=== PATIENT | female | born 2000 | race Caucasian/White ===

== ENCOUNTER 2025-02-08 17:19 | Inpatient (IN) | payer SELFPAY ==
[2025-02-08] VITALS (11 sets, daily range): BP systolic 93–147; BP diastolic 53–121; PULSE 112–142; RESP 17–25; TEMP 36.5–36.5292; O2SAT 99–100
[~2025-02-08] VITALS: Ht 162.6 cm; Wt 79.8 kg
[2025-02-08] MEDS: CEFTRIAXONE 2GM/50ML 50 ML IV ONE (18:00)
[2025-02-08] MEDS: SODIUM CHLORIDE 0.9% (SEPSIS BOLUS) IV ONE (18:53)
[2025-02-08] MEDS: KETOROLAC 15MG/ML VIAL IV ONE (18:53)
[2025-02-08 19:23] LABS: BASOPHILS % 0.2 % (0.0-2.0); EOSINOPHILS % 0.1 % (0.0-5.0); HEMATOCRIT. 44.6 % (36.0-48.0); HEMOGLOBIN. 13.0 g/dL (12.0-16.0); LYMPHOCYTES % 8.7 % (20.0-50.0); MEAN PLATELET VOLUME 10.7 fl (7.4-10.4); MONOCYTES % 4.8 % (2.0-8.0); NEUTROPHILS % 86.2 % (40.0-76.0); PLATELET 359 x1000/uL (130-400); RED BLOOD CELL COUNT 4.51 mill/uL (4.2-5.4); RED CELL DISTRIBUTION WIDTH 14.8 % (11.6-14.6)
[2025-02-08 19:37] LABS: INR 1.0
[2025-02-08 19:38] LABS: CREATININE 1.5 mg/dL (0.6-1.0); UREA NITROGEN BLOOD 17 mg/dL (9-23)
[2025-02-08 19:39] LABS: PROTEIN TOTAL 7.3 g/dL (6.0-8.3)
[2025-02-08 19:40] LABS: ASPARTATE AMINOTRANSFERASE 12 IU/L (<34); BILIRUBIN DIRECT < 0.1 mg/dL (<=3.0); BILIRUBIN TOTAL 0.3 mg/dL (0.1-1.0)
[2025-02-08] MEDS ORDERED: SODIUM PHOSPHATE 15 MMOL in SODIUM CHLORIDE 0.9% 245 ML IV PRN (20:15)
[2025-02-08] MEDS ORDERED: POTASSIUM CHLORIDE 40 MEQ in SODIUM CHLORIDE 0.9% 230 ML IV PRN (20:15)
[2025-02-08] MEDS ORDERED: DEXT 5%/0.9% NACL 1,000 ML IV SCH (20:15)
[2025-02-08] MEDS ORDERED: DEXTROSE 50% WATER 50ML SYRINGE IV PRN ×2 (20:15→21:00)
[2025-02-08] MEDS ORDERED: BLOOD SUGAR DIAGNOSTIC STRIP TEST SCH (20:15)
[2025-02-08] MEDS ORDERED: MAGNESIUM 2 G PREMIX 50 ML IV PRN ×2 (20:15→21:00)
[2025-02-08] MEDS ORDERED: KCL 20MEQ/100ML PREMIX 100 ML IV PRN (20:15)
[2025-02-08] MEDS ORDERED: SODIUM CHLORIDE 0.9% 1,000 ML IV SCH (20:15)
[2025-02-08] MEDS ORDERED: BLOOD SUGAR DIAGNOSTIC STRIP TEST PRN ×2 (20:15→21:00)
[2025-02-08] MEDS ORDERED: SODIUM BICARBONATE 8.4% 50MEQ/50ML VIAL IV ONE (20:15)
[2025-02-08] MEDS: INSULIN REGULAR (HUMULIN R) 1000UNITS/10ML VIAL IV ONE (20:58)
[2025-02-08] MEDS: ALBUTEROL (0.083%) 2.5MG/3ML NEB HHN ONE (20:58)
[2025-02-08] MEDS ORDERED: CLONIDINE 0.1MG TABLET PO PRN (21:00)
[2025-02-08] MEDS ORDERED: GUAIFENESIN 200MG/10ML SUGAR FREE UDC PO PRN (21:00)
[2025-02-08] MEDS ORDERED: DOCUSATE SODIUM 100MG CAPSULE PO PRN (21:00)
[2025-02-08] MEDS ORDERED: LACTATED RINGERS 1,000 ML IV SCH (21:00)
[2025-02-08] MEDS ORDERED: DEXT 5%/LACTATED RINGERS 1,000 ML IV SCH (21:00)
[2025-02-08] MEDS ORDERED: MAGNESIUM/ALUMINUM HYDROXIDE/SIMETHICONE 30ML UDC PO PRN (21:00)
[2025-02-08] MEDS ORDERED: INSULIN REGULAR (DRIP) 100 UNITS in SODIUM CHLORIDE 0.9% 99 ML IV SCH (21:00)
[2025-02-08] MEDS ORDERED: PIPERACILLIN/TAZOBACTAM 3.375 G in DEXTROSE 5% WATER 50 ML IV SCH (21:00)
[2025-02-08] MEDS ORDERED: SODIUM CHLORIDE 0.9% 1,000 ML IV ONE (21:00)
[2025-02-08] MEDS ORDERED: IPRATROPIUM/ALBUTEROL 0.5-3(2.5)MG/3ML NEB HHN PRN (21:00)
[2025-02-08] MEDS ORDERED: ONDANSETRON HCL 4MG/2ML INJ IV PRN ×2 (21:00→23:30)
[2025-02-08] MEDS ORDERED: ACETAMINOPHEN 325MG TABLET PO PRN ×2 (21:00)
[2025-02-08] MEDS: CALCIUM GLUCONATE 100MG/ML 10ML VIAL IV ONE (21:08)
[2025-02-08 21:13] LABS: PHOSPHORUS 5.4 mg/dL (2.5-4.9)
[2025-02-08 21:14] LABS: BG BASE EXCESS -26.3 mmol/L (-2.0-3.0); BG CARBOXYHEMOGLOBIN 0.2 % (0.5-1.5); BG DEOXYHEMOGLOBIN 0.4 % (0.0-5.0); BG FLOW(L/min) 8.00 L/min; BG HCO3 ACT 2.9 mmol/L (21.0-28.0); BG METHEMOGLOBIN 0.3 % (0.5-1.5); BG OXYGEN SATURATION 99.6 % (94.0-98.0); BG OXYHEMOGLOBIN 99.1 % (94.0-98.0); BG PCO2 11.8 mmHg (32.0-45.0); BG PH 7.008 (7.350-7.450); BG PO2 226.2 mmHg (83.0-108.0); BG SAMPLE SITE RIGHT RADIAL; BG TOTAL HEMOGLOBIN 13.0 g/dL (12.0-16.0)
[2025-02-08 21:16] LABS: T4 FREE 1.38 ng/dL (0.89-1.76)
[2025-02-08] MEDS: INSULIN REGULAR (DRIP) 100 UNITS in SODIUM CHLORIDE 0.9% 99 ML IV SCH (21:34)
[2025-02-08] MEDS: FUROSEMIDE 40MG/4ML VIAL IVP ONE (21:35)
[2025-02-08] MEDS: SODIUM BICARBONATE 8.4% 50MEQ/50ML SYR IV SCH (21:47)
[2025-02-08] MEDS ORDERED: PIPERACILLIN/TAZO 3.375G/50ML 50 ML IV SCH (22:00)
[2025-02-08 22:11] LABS: CLARITY URINE CLEAR (CLEAR); COLOR URINE YELLOW (YELLOW); GLUCOSE URINE 3+ (NEGATIVE); KETONES URINE 4+ (NEGATIVE); LEUKOCYTE ESTERASE URINE NEGATIVE (NEGATIVE); NITRITE URINE NEGATIVE (NEGATIVE); OCCULT BLOOD URINE NEGATIVE (NEGATIVE); PH URINE 5.0 (4.5-8.0); PROTEIN URINE 1+ (NEGATIVE); SPECIFIC GRAVITY URINE 1.021 (1.005-1.030); UROBILINOGEN URINE 0.2 E.U./dL (0.2-1.0)
[2025-02-08] MEDS: BLOOD SUGAR DIAGNOSTIC STRIP TEST SCH (22:15)
[2025-02-08 22:17] LABS: CHLORIDE URINE RANDOM < 20 mEq/L; SODIUM URINE RANDOM 39 mEq/L
[2025-02-08 22:23] LABS: OSMOLALITY URINE 452 mOsm/kg (500-850)
[2025-02-08] MEDS: PIPERACILLIN/TAZO 3.375G/50ML IV SCH (22:33)
[2025-02-08] MEDS: METOCLOPRAMIDE HCL 10MG/2ML VIAL IV SCH (22:33)
[2025-02-08] MEDS: ENOXAPARIN 40MG/0.4ML SYR SUBCUT SCH (22:34)
[2025-02-08 22:38] LABS: RBC URINE NONE SEEN /hpf (0-2); WBC URINE NONE SEEN /hpf (0-2)
[2025-02-08 22:39] LABS: BACTERIA URINE NONE SEEN; SQUAMOUS EPITHELIAL CELL URINE RARE /lpf (RARE/1+)
[2025-02-08] MEDS: LACTATED RINGERS 1,000 ML IV SCH (22:51)
[2025-02-08] MEDS: VANCOMYCIN 1.5GM/250ML IV SCH (23:22)
[2025-02-08] MEDS: SODIUM BICARBONATE 8.4% 50MEQ/50ML SYR IV NR (23:32)
[2025-02-09] VITALS (99 sets, daily range): BP systolic 61–144; BP diastolic 41–78; PULSE 111–138; RESP 12–30; TEMP 36.9–37.6; O2SAT 82–100
[2025-02-09] MEDS ORDERED: SODIUM CHLORIDE 0.9% 1,000 ML IV ONE
[2025-02-09 00:40] LABS: BG BASE EXCESS -21.8 mmol/L (-2.0-3.0); BG CARBOXYHEMOGLOBIN 0.2 % (0.5-1.5); BG DEOXYHEMOGLOBIN 1.3 % (0.0-5.0); BG FRACTION INSPIRED OXYGEN 21; BG HCO3 ACT 3.9 mmol/L (21.0-28.0); BG METHEMOGLOBIN 0.2 % (0.5-1.5); BG OXYGEN SATURATION 98.7 % (94.0-98.0); BG OXYHEMOGLOBIN 98.3 % (94.0-98.0); BG PCO2 10.6 mmHg (32.0-45.0); BG PH 7.184 (7.350-7.450); BG PO2 127.8 mmHg (83.0-108.0); BG SAMPLE SITE RIGHT RADIAL; BG TOTAL HEMOGLOBIN 12.8 g/dL (12.0-16.0); BG VENT MODE ROOM AIR
[2025-02-09] MEDS: SODIUM BICARBONATE 8.4% 50MEQ/50ML SYR IV NR ×2 (00:49→02:11)
[2025-02-09 00:57] LABS: TROPONIN I HIGH SENSITIVITY 501 ng/L (3.0-34)
[2025-02-09 01:03] LABS: CREATININE 1.6 mg/dL (0.6-1.0)
[2025-02-09 01:04] LABS: UREA NITROGEN BLOOD 21 mg/dL (9-23)
[2025-02-09 01:06] LABS: PHOSPHORUS 4.8 mg/dL (2.5-4.9)
[2025-02-09] MEDS: KCL 20MEQ/100ML PREMIX 100 ML IV PRN (01:13)
[2025-02-09] MEDS ORDERED: SODIUM CHLORIDE 0.9% 1,000 ML IV SCH (01:15)
[2025-02-09] MEDS: SODIUM CHLORIDE 0.9% 1,000 ML IV SCH (01:28)
[2025-02-09] MEDS ORDERED: HYDROMORPHONE HCL/PF 2MG/ML INJ IV PRN (01:30)
[2025-02-09] MEDS ORDERED: NALOXONE HCL 0.4MG/ML VIAL IV PRN (01:30)
[2025-02-09 01:31] LABS: TRIGLYCERIDE 159.0 mg/dL (0-150)
[2025-02-09 01:32] LABS: LDL CHOLESTEROL 129.0 mg/dL (5-100)
[2025-02-09] MEDS: LIDOCAINE HCL 1% 20ML VIAL INFIL NR (02:11)
[2025-02-09] MEDS: SODIUM BICARBONATE 150 MEQ in DEXTROSE 5% WATER 850 ML IV SCH (04:06)
[2025-02-09] MEDS: INSULIN REGULAR (DRIP) 100 UNITS in SODIUM CHLORIDE 0.9% 99 ML IV SCH (04:07)
[2025-02-09] MEDS ORDERED: DEXT 5%/0.9% NACL 1,000 ML IV SCH (05:15)
[2025-02-09 06:13] LABS: BASOPHILS % 0.0 % (0.0-2.0); EOSINOPHILS % 0.0 % (0.0-5.0); HEMATOCRIT. 35.4 % (36.0-48.0); HEMOGLOBIN. 11.5 g/dL (12.0-16.0); LYMPHOCYTES % 13.5 % (20.0-50.0); MEAN PLATELET VOLUME 9.7 fl (7.4-10.4); MONOCYTES % 7.6 % (2.0-8.0); NEUTROPHILS % 78.9 % (40.0-76.0); PLATELET 311 x1000/uL (130-400); RED BLOOD CELL COUNT 3.98 mill/uL (4.2-5.4); RED CELL DISTRIBUTION WIDTH 13.1 % (11.6-14.6)
[2025-02-09 06:25] LABS: T4 FREE 0.95 ng/dL (0.89-1.76)
[2025-02-09 06:27] LABS: CREATININE 1.2 mg/dL (0.6-1.0)
[2025-02-09 06:28] LABS: TRIGLYCERIDE 57 mg/dL (0-150); UREA NITROGEN BLOOD 21 mg/dL (9-23)
[2025-02-09 06:29] LABS: LDL CHOLESTEROL 106 mg/dL (5-100)
[2025-02-09 06:30] LABS: PROTEIN TOTAL 6.1 g/dL (6.0-8.3)
[2025-02-09 06:31] LABS: ASPARTATE AMINOTRANSFERASE 16 IU/L (<34); BILIRUBIN DIRECT 0.3 mg/dL (<=3.0)
[2025-02-09 06:32] LABS: BILIRUBIN TOTAL 1.1 mg/dL (0.1-1.0)
[2025-02-09 06:37] LABS: BG BASE EXCESS -5.3 mmol/L (-2.0-3.0); BG CARBOXYHEMOGLOBIN 0.9 % (0.5-1.5); BG DEOXYHEMOGLOBIN 2.0 % (0.0-5.0); BG FRACTION INSPIRED OXYGEN 21; BG HCO3 ACT 18.1 mmol/L (21.0-28.0); BG METHEMOGLOBIN 0.4 % (0.5-1.5); BG OXYGEN SATURATION 98.0 % (94.0-98.0); BG OXYHEMOGLOBIN 96.7 % (94.0-98.0); BG PCO2 29.3 mmHg (32.0-45.0); BG PH 7.409 (7.350-7.450); BG PO2 95.0 mmHg (83.0-108.0); BG SAMPLE SITE RIGHT RADIAL; BG TOTAL HEMOGLOBIN 12.3 g/dL (12.0-16.0); BG VENT MODE ROOM AIR
[2025-02-09 06:52] LABS: TROPONIN I HIGH SENSITIVITY 1438 ng/L (3.0-34)
[2025-02-09 07:01] LABS: PHOSPHORUS 0.3 mg/dL (2.5-4.9)
[2025-02-09] MEDS: KCL 20MEQ/100ML X 2 FOR TOTAL KCL 40MEQ/200ML IV SCH (07:08)
[2025-02-09] MEDS: DEXT 5%/0.9% NACL 1,000 ML IV SCH (07:09)
[2025-02-09] MEDS: SODIUM PHOSPHATE 15 MMOL in SODIUM CHLORIDE 0.9% 245 ML IV PRN (07:45)
[2025-02-09] MEDS ORDERED: VANCOMYCIN 750MG/150ML (BAXTER) IV SCH ×2 (09:00)
[2025-02-09] MEDS ORDERED: PANTOPRAZOLE SODIUM 40 MG/VIAL IV SCH (09:00)
[2025-02-09 09:46] LABS: BG BASE EXCESS -5.3 mmol/L (-2.0-3.0); BG CARBOXYHEMOGLOBIN 0.8 % (0.5-1.5); BG DEOXYHEMOGLOBIN 1.7 % (0.0-5.0); BG FRACTION INSPIRED OXYGEN 21; BG HCO3 ACT 18.2 mmol/L (21.0-28.0); BG METHEMOGLOBIN 0.3 % (0.5-1.5); BG OXYGEN SATURATION 98.3 % (94.0-98.0); BG OXYHEMOGLOBIN 97.2 % (94.0-98.0); BG PCO2 29.5 mmHg (32.0-45.0); BG PH 7.409 (7.350-7.450); BG PO2 96.5 mmHg (83.0-108.0); BG SAMPLE SITE RIGHT RADIAL; BG TOTAL HEMOGLOBIN 12.2 g/dL (12.0-16.0); BG VENT MODE ROOM AIR
[2025-02-09] MEDS: PANTOPRAZOLE SODIUM 40 MG/VIAL IV SCH (10:03)
[2025-02-09] MEDS: MULTIVITAMINS,THER W-MINERALS TABLET PO SCH (10:04)
[2025-02-09 13:07] LABS: CREATININE 1.1 mg/dL (0.6-1.0); UREA NITROGEN BLOOD 12 mg/dL (9-23)
[2025-02-09 13:10] LABS: PHOSPHORUS 3.4 mg/dL (2.5-4.9)
[2025-02-09 13:13] LABS: T4 FREE 1.00 ng/dL (0.89-1.76)
[2025-02-09] MEDS ORDERED: SODIUM CHL 0.45% + KCL 20MEQ/L 1,000 ML IV SCH (15:00)
[2025-02-09] MEDS ORDERED: SODIUM CHLORIDE 0.45% 500 ML IV ONE (15:15)
[2025-02-09] MEDS: VANCOMYCIN 1.25GM/250ML IV SCH (15:43)
[2025-02-09] MEDS: SODIUM CHLORIDE 0.45% 500 ML IV ONE (17:12)
[2025-02-09] MEDS: POTASSIUM CHLORIDE 20 MEQ in SODIUM CHLORIDE 0.45% 1,000 ML IV SCH (17:12)
[2025-02-09 17:35] LABS: CLARITY URINE CLEAR (CLEAR); GLUCOSE URINE 3+ (NEGATIVE); KETONES URINE 4+ (NEGATIVE); LEUKOCYTE ESTERASE URINE NEGATIVE (NEGATIVE); NITRITE URINE NEGATIVE (NEGATIVE); OCCULT BLOOD URINE NEGATIVE (NEGATIVE); PH URINE 5.5 (4.5-8.0); PROTEIN URINE NEGATIVE (NEGATIVE); SPECIFIC GRAVITY URINE 1.022 (1.005-1.030); UROBILINOGEN URINE 0.2 E.U./dL (0.2-1.0)
[2025-02-09] MEDS: DEXT 5%/0.45% NACL 1000ML 1,000 ML IV SCH (17:43)
[2025-02-09] MEDS: SODIUM CHLORIDE 0.45% 1,000 ML IV SCH (17:43)
[2025-02-09 17:44] LABS: *AMPHETAMINES SCREEN URINE NEGATIVE (NEGATIVE); *BARBITURATES SCREEN URINE NEGATIVE (NEGATIVE); *BENZODIAZEPINES SCREEN URINE NEGATIVE (NEGATIVE); *COCAINE SCREEN URINE NEGATIVE (NEGATIVE); METHADONE URINE SCREEN NEGATIVE (NEGATIVE); OPIATES URINE SCREEN NEGATIVE (NEGATIVE)
[2025-02-09 17:45] LABS: CANNABINOID URINE SCREEN NEGATIVE (NEGATIVE); ECSTASY MDMA SCREEN URINE NEGATIVE (NEGATIVE); PHENCYCLIDINE URINE SCREEN NEGATIVE (NEGATIVE)
[2025-02-09] MEDS ORDERED: SODIUM PHOSPHATE 15 MMOL in SODIUM CHLORIDE 0.9% 245 ML IV PRN (17:45)
[2025-02-09] MEDS ORDERED: MAGNESIUM 2 G PREMIX 50 ML IV PRN (17:45)
[2025-02-09] MEDS ORDERED: BLOOD SUGAR DIAGNOSTIC STRIP TEST PRN (17:45)
[2025-02-09] MEDS ORDERED: POTASSIUM CHLORIDE 40 MEQ in SODIUM CHLORIDE 0.9% 230 ML IV PRN (17:45)
[2025-02-09] MEDS ORDERED: KCL 20MEQ/100ML PREMIX 100 ML IV PRN (17:45)
[2025-02-09] MEDS ORDERED: DEXTROSE 50% WATER 50ML SYRINGE IV PRN ×2 (17:45→19:45)
[2025-02-09 18:01] LABS: COLOR URINE STRAW (YELLOW)
[2025-02-09 18:26] LABS: RBC URINE NONE SEEN /hpf (0-2); SQUAMOUS EPITHELIAL CELL URINE 1+ /lpf (RARE/1+); WBC URINE 0-2 /hpf (0-2)
[2025-02-09 18:38] LABS: BACTERIA URINE TRACE; YEAST URINE 1+
[2025-02-09 18:41] LABS: CREATININE 0.9 mg/dL (0.6-1.0); UREA NITROGEN BLOOD 13 mg/dL (9-23)
[2025-02-09 18:54] LABS: HCG SCREEN NEGATIVE
[2025-02-09 18:55] LABS: PHOSPHORUS 0.8 mg/dL (2.5-4.9)
[2025-02-09] MEDS: POTASSIUM CHLORIDE 40 MEQ in SODIUM CHLORIDE 0.9% 230 ML IV PRN (19:06)
[2025-02-09] MEDS ORDERED: POTASSIUM PHOSPHATE 30 MMOL in SODIUM CHLORIDE 0.9% 490 ML IV ONE (19:45)
[2025-02-09] MEDS ORDERED: MAGNESIUM 1 G PREMIX 100 ML IV ONE (19:45)
[2025-02-09] MEDS: MAGNESIUM 2 G PREMIX 50 ML IV SCH (19:54)
[2025-02-09] MEDS: INSULIN GLARGINE 100 UNITS/ML SUBCUT SCH (19:55)
[2025-02-09] MEDS: INSULIN LISPRO 100 UNITS/ML SUBCUT SCH (21:00)
[2025-02-09] MEDS: BLOOD SUGAR DIAGNOSTIC STRIP TEST SCH (21:08)
[2025-02-09] MEDS: POTASSIUM PHOSPHATE 30 MMOL in DEXT 5% WATER 500 ML IV NR (21:30)
[2025-02-09 22:47] LABS: CREATININE 0.8 mg/dL (0.6-1.0)
[2025-02-09 22:48] LABS: UREA NITROGEN BLOOD 10 mg/dL (9-23)
[2025-02-10] VITALS (37 sets, daily range): BP systolic 93–136; BP diastolic 44–69; PULSE 99–121; RESP 14–28; TEMP 36.4; O2SAT 98–100
[2025-02-10 01:23] LABS: PHOSPHORUS 3.1 mg/dL (2.5-4.9)
[2025-02-10] MEDS ORDERED: SODIUM CHLORIDE 0.9% 1,000 ML IV SCH (05:45)
[2025-02-10 06:27] LABS: CREATININE 1.0 mg/dL (0.6-1.0); UREA NITROGEN BLOOD 8 mg/dL (9-23)
[2025-02-10] MEDS ORDERED: BLOOD SUGAR DIAGNOSTIC STRIP TEST PRN (06:45)
[2025-02-10] MEDS ORDERED: KCL 20MEQ/100ML PREMIX 100 ML IV PRN (06:45)
[2025-02-10] MEDS ORDERED: DEXTROSE 50% WATER 50ML SYRINGE IV PRN (06:45)
[2025-02-10] MEDS ORDERED: SODIUM PHOSPHATE 15 MMOL in SODIUM CHLORIDE 0.9% 245 ML IV PRN (06:45)
[2025-02-10] MEDS ORDERED: POTASSIUM CHLORIDE 40 MEQ in SODIUM CHLORIDE 0.9% 230 ML IV PRN (06:45)
[2025-02-10] MEDS ORDERED: MAGNESIUM 2 G PREMIX 50 ML IV PRN (06:45)
[2025-02-10] MEDS: INSULIN REGULAR (DRIP) 100 UNITS in SODIUM CHLORIDE 0.9% 99 ML IV SCH (07:27)
[2025-02-10] MEDS: DEXT 5%/0.45% NACL 1000ML 1,000 ML IV SCH (07:27)
[2025-02-10 09:53] LABS: BASOPHILS % 0.3 % (0.0-2.0); EOSINOPHILS % 0.0 % (0.0-5.0); HEMATOCRIT. 36.8 % (36.0-48.0); HEMOGLOBIN. 11.6 g/dL (12.0-16.0); LYMPHOCYTES % 18.1 % (20.0-50.0); MEAN PLATELET VOLUME 9.7 fl (7.4-10.4); MONOCYTES % 3.2 % (2.0-8.0); NEUTROPHILS % 78.4 % (40.0-76.0); PLATELET 234 x1000/uL (130-400); RED BLOOD CELL COUNT 3.98 mill/uL (4.2-5.4); RED CELL DISTRIBUTION WIDTH 13.9 % (11.6-14.6)
[2025-02-10 10:05] LABS: TROPONIN I HIGH SENSITIVITY 821 ng/L (3.0-34)
[2025-02-10 11:13] LABS: PHOSPHORUS 1.0 mg/dL (2.5-4.9)
[2025-02-10 13:08] LABS: *CREATININE RANDOM URINE 24.3 mg/dL (Not Estab.); MICROALBUMIN RANDOM URINE 49.8 ug/mL (Not Estab.); MICROALBUMIN/CREATININE RATIO 205.0 mg/g creat (0-29)
[2025-02-10] MEDS ORDERED: SODIUM CHL 0.45% + KCL 20MEQ/L 1,000 ML IV SCH (13:12)
== END 2025-02-10 14:18 | disposition left against medical advice (07) | DRG 720 ==
LOC: ER 17:19 → MICUNO 20:13 → EDBEDREQTM 20:16 → EDBEDREQ 20:16 → ENRESERV 20:41
PROVIDERS: ADMIT Student in an Organized Health Care Education/Training Program; ATTEND Student in an Organized Health Care Education/Training Program
DX: A41.9 Sepsis, unspecified organism (principal); I21.4 Non-ST elevation (NSTEMI) myocardial infarction; E10.10 Type 1 diabetes mellitus with ketoacidosis without coma; E83.39 Other disorders of phosphorus metabolism; N13.6 Pyonephrosis; N17.9 Acute kidney failure, unspecified; E10.22 Type 1 diabetes mellitus with diabetic chronic kidney disease; N18.9 Chronic kidney disease, unspecified; E10.43 Type 1 diabetes mellitus with diabetic autonomic (poly)neuropathy; E87.5 Hyperkalemia; E86.0 Dehydration; K31.84 Gastroparesis; Z53.29 Procedure and treatment not carried out because of patient's decision for other reasons; Z59.71 Insufficient health insurance coverage; Z79.4 Long term (current) use of insulin; Z79.899 Other long term (current) drug therapy
CPT/HCPCS: 36415; 36600; 71045; 74176; 76770; 80048; 80051; 80061; 80076; 80305; 81003; 82010; 82043; 82375; 82436; 82550; 82570; 82805; 82962; 83036; 83605; 83735; 83930; 83935; 84100; 84145; 84300; 84439; 84443; 84481; 84484; 84703; 85025; 85379; 93005; 93306; 93970; 94070; 94640; 96361; 96365; 96375; 99291; 99292; J0612; J0696; J1650; J1815; J1885; J1938; J2003; J2405; J2470; J2543; J2765; J3373; J3475; J3480; J3490; J7030; J7042; J7050; J7060; J7070